=== PATIENT | female | born 2000 | race Caucasian/White ===

== ENCOUNTER 2021-09-27 19:56 | Inpatient (IN) ==
[2021-09-27] MEDS ORDERED: Lactated Ringers 1000 ml BAG 1,000 ML IV ONE (21:13)
[2021-09-27] MEDS ORDERED: Buffered Lidocaine 1% SYRIN 1 ml INTRADERM ONE (21:13)
[2021-09-27 22:39] LABS: Urine Benzodiazepine Screen None Detected (None Detect); Urine Cannabinoids Screen None Detected (None Detect); Urine Opiates Screen None Detected (None Detect)
[2021-09-28 00:43] LABS: ABS Basophils 0.1 10^3/ul (0-0.2); ABS Lymphocytes 1.8 10^3/ul (1.0-4.8); ABS Monocytes 0.5 10^3/ul (0-0.8); ABS Neutrophils 5.9 10^3/ul (1.5-7.7); Eosinophil % 0.2 %; Hematocrit 37 % (35-47); Hemoglobin 12.6 g/dL (12.0-16.0); Lymphocyte % 21.9 %; Mean Corpuscular HGB Conc 34 g/dL (31-36); Mean Corpuscular Hemoglobin 29 pg (27-31); Mean Corpuscular Volume 84 fL (80-97); Platelet Count 237 10^3/uL (150-450); Red Blood Count 4.39 10^6 /uL (3.70-4.87); Red Cell Distribution Width 15 % (10-15); White Blood Count 8.3 10^3/uL (3.5-10.8)
[2021-09-28] MEDS ORDERED: Morphine 10 MG/ML VIAL (1 ml) IV ONE ×2 (01:00→06:13)
[2021-09-28] MEDS ORDERED: Promethazine INJ(RESTRICTED) 25 MG/ML 1 ml VIAL IV PRN (01:00)
[2021-09-28] MEDS ORDERED: Calcium Carb (TUMS) 500 mg CHEW TAB PO PRN (06:04)
[2021-09-28] MEDS ORDERED: OBEPIDURAL (200 ML) 200 ML EPIDURAL ONE (13:08)
[2021-09-28] MEDS ORDERED: Lidocaine 1.5% EPI 1:200,000 30 ML SDV ONE (13:30)
[2021-09-28] MEDS ORDERED: Sodium Citrate/Citric Acid LIQ 15 ML UDC PO PRN (14:11)
[2021-09-28] MEDS ORDERED: Lactated Ringers 1000 ml BAG 500 ML IV PRN (14:11)
[2021-09-28] MEDS ORDERED: Lactated Ringers 1000 ml BAG 1,000 ML IV ONE (14:11)
[2021-09-28] MEDS ORDERED: Phenylephrine 40 mcg/mL 10mL (400mcg) SYRINGE IV PUSH PRN ×2 (14:11)
[2021-09-28] MEDS ORDERED: EPHEDrine (Pressors) 50 MG/ML VIAL IV PUSH PRN ×2 (14:11)
[2021-09-28 14:32] LABS: Urine Appearance Clear; Urine Bilirubin Negative (Negative); Urine Blood Negative (Negative); Urine Color Yellow; Urine Glucose Negative (Negative); Urine Ketones 1+ (Negative); Urine Nitrite Negative (Negative); Urine Protein Negative (Negative); Urine Specific Gravity 1.016 (1.002-1.030); Urine Urobilinogen Negative (Negative)
[2021-09-28] MEDS ORDERED: Lactated Ringers 1000 ml BAG 1,000 ML IV SCH ×2 (15:00)
[2021-09-28] MEDS ORDERED: OBEPIDURAL (200 ML) 200 ML EPIDURAL SCH (15:00)
[2021-09-28] MEDS: Ampicillin ADVAN 2 GM in NS 0.9% 100 ml BAG 100 ML IVPB SCH (19:42)
[2021-09-28] MEDS ORDERED: Oxytocin in LR 20 UNITS/1,000 ML BAG IVPB SCH (20:00)
[2021-09-28] MEDS: NS 0.9% IVPB SCH (20:30)
[2021-09-28] MEDS: GENTAMICIN ADULT IVPB SCH (20:30)
[2021-09-29] MEDS: Ampicillin ADVAN 2 GM in NS 0.9% 100 ml BAG 100 ML IVPB SCH ×4 (01:47→21:45)
[2021-09-29] MEDS ORDERED: Measles, Mumps,Rubella VACC 0.5 ML/VIAL SUBCUT ONE (04:03)
[2021-09-29] MEDS ORDERED: Glycerin ADULT 2.4 gm SUPP PR PRN (04:03)
[2021-09-29] MEDS ORDERED: Oxytocin in LR 20 UNITS/1,000 ML BAG IVPB SCH (05:00)
[2021-09-29] MEDS ORDERED: Lactated Ringers 1000 ml BAG 1,000 ML IV SCH (05:00)
[2021-09-29] MEDS: Dibucaine 1% OINT 28.35 GM TUBE PR PRN (05:56)
[2021-09-29] MEDS: Witch Hazel PAD JAR TOPICAL PRN (05:56)
[2021-09-29] MEDS ORDERED: Lidocaine 1% VIAL 10 MG/ML VIAL ONE (06:39)
[2021-09-29] MEDS ORDERED: Lidocaine 1% MPF 5 ML VIAL ONE (21:03)
[2021-09-29] MEDS: GENTAMICIN ADULT IVPB SCH (22:17)
[2021-09-29] MEDS: NS 0.9% IVPB SCH (22:17)
[2021-09-30] MEDS ORDERED: NS 0.9% 100 ml BAG 100 ML ONE (02:59)
[2021-09-30] MEDS: Ampicillin ADVAN 2 GM in NS 0.9% 100 ml BAG 100 ML IVPB SCH ×2 (03:02→13:07)
[2021-09-30 06:56] LABS: ABS Eosinophils 0.1 10^3/ul (0-0.6); ABS Lymphocytes 2.8 10^3/ul (1.0-4.8); ABS Monocytes 0.5 10^3/ul (0-0.8); ABS Neutrophils 6.4 10^3/ul (1.5-7.7); Hematocrit 31 % (35-47); Hemoglobin 10.5 g/dL (12.0-16.0); Lymphocyte % 28.7 %; Mean Corpuscular HGB Conc 34 g/dL (31-36); Mean Corpuscular Hemoglobin 29 pg (27-31); Mean Corpuscular Volume 85 fL (80-97); Mean Platelet Volume 7.8 fL (7.4-10.4); Platelet Count 204 10^3/uL (150-450); Red Blood Count 3.65 10^6 /uL (3.70-4.87); Red Cell Distribution Width 15 % (10-15); White Blood Count 9.8 10^3/uL (3.5-10.8)
[2021-09-30] MEDS ORDERED: GENTAMICIN IV SCH (20:00)
[2021-09-30] MEDS: Dibucaine 1% OINT 28.35 GM TUBE PR PRN (21:12)
[2021-09-30] MEDS: Witch Hazel PAD JAR TOPICAL PRN (21:13)
[2021-10-01 07:15] VITALS: BP 120/83
== END 2021-10-01 10:10 | disposition home or self-care (01) | DRG 560 ==
LOC: MCHOBOUT 19:56 → MCHOB 20:51
PROVIDERS: ADMIT Advanced Practice Midwife; ATTEND Midwife